=== PATIENT | male | born 1940 | race Caucasian/White ===

== ENCOUNTER 2017-04-09 09:32 | Observation (INO) | payer OTHER, BC ==
[~2017-04-09] VITALS: Ht 177.8 cm; Wt 73.0 kg
[~2017-04-09 09:32] MED LIST: ACTONEL35 MG PO; AMIODARONE HCL200 MG PO; ASPIR 8181 M1 PO; ATORVASTATIN CA20 MG PO; FLOMAX0.4 MG PO; HYDROCODON-ACE1 EAC7 PO; LEVOTHYROXINE100 MCG PO; LISINOPRIL2.5 MG PO; RANITIDINE HCL300 MG PO; RECLAST5 MG/100 M IV; SINEMET 25-1001 EACH PO; SYNTHROID50 MCG PO; VESICARE5 MG PO; VITAMIN D-32000 UNI2 PO; VITAMIN D32000 UNIT PO; WARFARIN SODIU7.5 MG PO; WARFARIN SODIUM5 MG PO
[2017-04-09 10:58] LABS: HEMATOCRIT 37.2 % (38.0-50.0); MCH 31.6 PG (29.0-34.0); MCHC 33.6 G/DL (30.0-36.0); MCV 94.2 FL (86-99); MEAN PLAT.VOLUME 10.3 uM^3 (9.0-12.4); PLATELET COUNT 153 K/uL (156-360); RBC DIS.WIDTH-CV 13.2 % (11.8-14.6); RBC DIS.WIDTH-SD 45.7 % (39-53); RED BLOOD COUNT 3.95 M/uL (4.00-5.50); WHITE BLOOD COUNT 7.1 K/uL (4.1-10.2)
[2017-04-09 11:03] LABS: INTER. NORMALIZED RATIO 2.5
[2017-04-09 11:06] LABS: PTT 40.9 SEC (25-37)
[2017-04-09 11:09] LABS: CHLORIDE 107 mEq/L (99-109); SODIUM 139 mEq/L (136-147)
[2017-04-09 11:11] LABS: GLUCOSE 108 mg/dL (70-99)
[2017-04-09 11:13] LABS: ANION GAP 9 MEQ/L (2-14)
[2017-04-09 11:15] LABS: GFR ESTIMATE (CALCULATED) > 59 mL/min/
[2017-04-09 11:16] LABS: UREA NITROGEN (BUN) 28 mg/dL (9-23)
[2017-04-09 13:57] VITALS: BP 150/74
[2017-04-09] MEDS ORDERED: AMIODARONE HCL200 MG PO (18:20)
[2017-04-09] MEDS ORDERED: WARFARIN SODIU2.5 MG PO (18:20)
[2017-04-09] MEDS ORDERED: VITAMIN D35000 UNI2 PO (18:20)
[2017-04-09] MEDS ORDERED: LEVO-T50 MCG PO (18:21)
[2017-04-09] MEDS ORDERED: ATORVASTATIN CA20 MG PO (18:21)
[2017-04-09] MEDS ORDERED: LISINOPRIL2.5 MG PO (18:22)
[2017-04-09] MEDS ORDERED: RANITIDINE HCL300 MG PO (18:22)
[2017-04-09] MEDS ORDERED: CARBIDOPA/LEVO1 EACH PO (18:23)
[2017-04-09] MEDS ORDERED: ASPIR 8181 M1 PO (18:23)
[2017-04-09] MEDS ORDERED: PAROXETINE HCL10 MG PO (18:25)
[2017-04-09 18:51] VITALS: BP 152/80
[2017-04-10 00:45] LABS: HEMATOCRIT 37.3 % (38.0-50.0); MCV 93.7 FL (86-99)
[2017-04-10 05:38] LABS: HEMATOCRIT 36.9 % (38.0-50.0); MCV 94.1 FL (86-99)
[2017-04-10 06:08] LABS: INTER. NORMALIZED RATIO 1.5
[2017-04-10 06:15] LABS: ANION GAP 11 MEQ/L (2-14); CHLORIDE 107 MEQ/L (99-109); GFR ESTIMATE (CALCULATED) > 59 mL/min/; POTASSIUM 3.7 MEQ/L (3.7-5.4); SAMPLE HEMOLYSIS CHECK 0; SAMPLE ICTERIC CHECK 0; SAMPLE LIPEMIA CHECK 0; SODIUM 142 MEQ/L (136-147); UREA NITROGEN (BUN) 15 mg/dL (9-23)
[2017-04-10 06:17] LABS: PROTHROMBIN TIME 16.3 SEC (10.2-12.9)
[2017-04-10 06:22] LABS: GLUCOSE 80 mg/dL (70-99)
[2017-04-10 07:57] VITALS: BP 158/84
[2017-04-10 12:06] VITALS: BP 157/81
[2017-04-10] MEDS ORDERED: LO-DOSE ASPIRIN81 M2 PO (12:42)
[2017-04-10] MEDS ORDERED: CARBIDOPA/LEVO1 EACH PO ×2 (12:44→12:45)
[2017-04-10] MEDS ORDERED: ACETAMINOPHEN325 M3 PO (12:47)
[2017-04-10 16:11] VITALS: BP 116/68
[2017-04-10 19:56] VITALS: BP 121/73
[2017-04-10 23:12] VITALS: BP 155/80
[2017-04-11 00:50] LABS: HEMATOCRIT 37.6 % (38.0-50.0); MCV 94.7 FL (86-99)
[2017-04-11 03:36] VITALS: BP 139/76
[2017-04-11 07:04] LABS: HEMATOCRIT 42.4 % (38.0-50.0); MCH 31.6 PG (29.0-34.0); MCHC 33.3 G/DL (30.0-36.0); MCV 95.1 FL (86-99); MEAN PLAT.VOLUME 10.9 uM^3 (9.0-12.4); PLATELET COUNT 166 K/uL (156-360); RBC DIS.WIDTH-CV 13.2 % (11.8-14.6); RBC DIS.WIDTH-SD 46.3 % (39-53); RED BLOOD COUNT 4.46 M/uL (4.00-5.50); WHITE BLOOD COUNT 7.7 K/uL (4.1-10.2)
[2017-04-11 08:34] VITALS: BP 175/87
[2017-04-11 11:21] VITALS: BP 140/69
[2017-04-11 15:00] VITALS: BP 131/73
[2017-04-11 17:25] LABS: MCV 94.7 FL (86-99)
[2017-04-11 19:45] VITALS: BP 164/85
[2017-04-11 23:33] VITALS: BP 175/92
[2017-04-12] VITALS (7 sets, daily range): BP systolic 98–185; BP diastolic 60–93
[2017-04-12 00:44] LABS: HEMATOCRIT 36.2 % (38.0-50.0); MCV 93.5 FL (86-99)
[2017-04-12 05:57] LABS: HEMATOCRIT 36.4 % (38.0-50.0); MCV 93.8 FL (86-99)
[2017-04-12 06:01] LABS: INTER. NORMALIZED RATIO 1.2; PROTHROMBIN TIME 12.9 SEC (10.2-12.9)
[2017-04-12 16:06] LABS: HEMATOCRIT 37.6 % (38.0-50.0); MCV 93.3 FL (86-99)
[2017-04-13 01:00] LABS: HEMATOCRIT 36.3 % (38.0-50.0); MCV 92.8 FL (86-99)
[2017-04-13 03:57] VITALS: BP 158/78
[2017-04-13 08:04] VITALS: BP 181/91
[2017-04-13 09:14] LABS: INTER. NORMALIZED RATIO 1.2; PROTHROMBIN TIME 12.8 SEC (10.2-12.9)
[2017-04-13 11:53] VITALS: BP 131/66
== END 2017-04-13 13:33 | disposition home or self-care (01) ==
LOC: EME 09:32 → EDOF 12:01 → 5SOUTH 12:01 → EDOF 12:15 → 5SOUTH 13:17
PROVIDERS: Emergency Medicine; Hospitalist; Nurse Practitioner Adult Health
DX: K55.21 Angiodysplasia of colon with hemorrhage (principal); Z53.09 Procedure and treatment not carried out because of other contraindication; D12.2 Benign neoplasm of ascending colon; D12.3 Benign neoplasm of transverse colon; K57.30 Diverticulosis of large intestine without perforation or abscess without bleeding; I48.91 Unspecified atrial fibrillation; I10 Essential (primary) hypertension; I25.10 Atherosclerotic heart disease of native coronary artery without angina pectoris; Z95.1 Presence of aortocoronary bypass graft; G20 Parkinson's disease; E89.0 Postprocedural hypothyroidism; Z85.46 Personal history of malignant neoplasm of prostate; Z92.3 Personal history of irradiation; Z79.01 Long term (current) use of anticoagulants; Z87.891 Personal history of nicotine dependence; Z79.82 Long term (current) use of aspirin
CPT/HCPCS: 36415; 80048; 84443; 84450; 84460; 85014; 85018; 85027; 85610; 85730; 86900; 86901; 88305; 99281; 99285; C9132; G0378; J3430; J7030; J7050

== ENCOUNTER 2017-05-18 14:30 | Inpatient (IN) | payer OTHER, BC ==
[~2017-05-18] VITALS: Ht 177.8 cm; Wt 73.5 kg
[2017-05-18] VITALS (10 sets, daily range): BP systolic 143–185; BP diastolic 70–92
[~2017-05-18 14:30] MED LIST changes: +ACETAMINOPHEN325 M3 PO; +CARBIDOPA/LEVO1 EACH PO; +LEVO-T50 MCG PO; +LO-DOSE ASPIRIN81 M2 PO; +PAROXETINE HCL10 MG PO; +VITAMIN D35000 UNI2 PO; +WARFARIN SODIU2.5 MG PO
[2017-05-18 15:05] LABS: HEMATOCRIT 38.8 % (38.0-50.0); MCH 31.3 PG (29.0-34.0); MCHC 33.5 G/DL (30.0-36.0); MCV 93.3 FL (86-99); MEAN PLAT.VOLUME 10.9 uM^3 (9.0-12.4); PLATELET COUNT 161 K/uL (156-360); RBC DIS.WIDTH-CV 13.6 % (11.8-14.6); RBC DIS.WIDTH-SD 46.7 % (39-53); RED BLOOD COUNT 4.16 M/uL (4.00-5.50)
[2017-05-18 15:14] LABS: PROTHROMBIN TIME 34.3 SEC (10.2-12.9)
[2017-05-18 15:17] LABS: CHLORIDE 109 mEq/L (99-109); POTASSIUM 4.1 mEq/L (3.7-5.4); SODIUM 141 mEq/L (136-147)
[2017-05-18 15:18] LABS: GLUCOSE 97 mg/dL (70-99)
[2017-05-18 15:20] LABS: ANION GAP 8 MEQ/L (2-14)
[2017-05-18 15:22] LABS: GFR ESTIMATE (CALCULATED) > 59 mL/min/
[2017-05-18 15:23] LABS: UREA NITROGEN (BUN) 18 mg/dL (9-23)
[2017-05-18] MEDS ORDERED: WARFARIN SODIUM5 MG PO (15:44)
[2017-05-18] MEDS ORDERED: ASPIR 8181 M1 PO (15:45)
[2017-05-18] MEDS ORDERED: VITAMIN D35000 UNIT PO (15:45)
[2017-05-18] MEDS ORDERED: CARBIDOPA/LEVO1 EACH PO (15:46)
[2017-05-19 00:40] VITALS: BP 156/76
[2017-05-19 04:58] VITALS: BP 170/104
[2017-05-19 06:15] LABS: HEMATOCRIT 38.8 % (38.0-50.0); MCH 31.4 PG (29.0-34.0); MCHC 33.5 G/DL (30.0-36.0); MCV 93.7 FL (86-99); MEAN PLAT.VOLUME 10.7 uM^3 (9.0-12.4); PLATELET COUNT 152 K/uL (156-360); RBC DIS.WIDTH-CV 13.2 % (11.8-14.6); RBC DIS.WIDTH-SD 45.6 % (39-53); RED BLOOD COUNT 4.14 M/uL (4.00-5.50); WHITE BLOOD COUNT 7.7 K/uL (4.1-10.2)
[2017-05-19 06:21] LABS: INTER. NORMALIZED RATIO 1.6; PROTHROMBIN TIME 17.4 SEC (10.2-12.9)
[2017-05-19 08:14] VITALS: BP 144/69
[2017-05-19 12:03] VITALS: BP 90/50
[2017-05-19 16:00] VITALS: BP 195/90
[2017-05-19 21:14] VITALS: BP 149/79
[2017-05-20 04:23] VITALS: BP 134/69
[2017-05-20 05:45] LABS: HEMATOCRIT 39.5 % (38.0-50.0); MCH 30.7 PG (29.0-34.0); MCHC 32.7 G/DL (30.0-36.0); RBC DIS.WIDTH-SD 46.7 % (39-53); WHITE BLOOD COUNT 7.1 K/uL (4.1-10.2)
[2017-05-20 05:46] LABS: EOSINOPHIL (%) 1.8 % (0-5); EOSINOPHIL COUNT 0.1 K/uL (0-0.3); IMMATURE GRANULOCYTE (%) 0.4 % (0.0-0.7); INSTRUMENT ABS NEUTROPHIL CT 4.7 K/uL; MEAN PLAT.VOLUME 10.5 uM^3 (9.0-12.4); MONOCYTE (%) 16.9 % (3-12); MONOCYTE COUNT 1.2 K/uL (0-0.8); NEUTROPHIL (%) 66.5 % (45-76); NEUTROPHIL COUNT 4.7 K/uL (1.8-6.4); PLATELET COUNT 163 K/uL (156-360); RBC DIS.WIDTH-CV 13.5 % (11.8-14.6)
[2017-05-20 07:18] LABS: INTER. NORMALIZED RATIO 1.2; PROTHROMBIN TIME 13.4 SEC (10.2-12.9)
[2017-05-20 07:21] LABS: PTT 32.9 SEC (25-37)
[2017-05-20 11:44] VITALS: BP 139/75
[2017-05-20 15:27] VITALS: BP 184/88
== END 2017-05-20 18:53 | disposition home or self-care (01) | DRG 919 ==
LOC: EME 14:30 → EDOF 15:45 → ENRESERV 15:47 → 5WEST 17:38 → CANRESERV 05-19 13:14 → ENRESERV 05-19 13:14 → CANRESERV 05-19 13:23 → 5WEST 05-20 18:53
PROVIDERS: Internal Medicine; Specialist
DX: K91.840 Postprocedural hemorrhage of a digestive system organ or structure following a digestive system procedure (principal); Y83.8 Other surgical procedures as the cause of abnormal reaction of the patient, or of later complication, without mention of misadventure at the time of the procedure; R79.1 Abnormal coagulation profile; T45.515A Adverse effect of anticoagulants, initial encounter; K62.7 Radiation proctitis; K55.21 Angiodysplasia of colon with hemorrhage; I48.91 Unspecified atrial fibrillation; I10 Essential (primary) hypertension; G20 Parkinson's disease; E03.9 Hypothyroidism, unspecified; N40.0 Benign prostatic hyperplasia without lower urinary tract symptoms; K21.9 Gastro-esophageal reflux disease without esophagitis; I25.10 Atherosclerotic heart disease of native coronary artery without angina pectoris; Z86.718 Personal history of other venous thrombosis and embolism; Z79.01 Long term (current) use of anticoagulants; Z79.82 Long term (current) use of aspirin; Z95.1 Presence of aortocoronary bypass graft; Z87.891 Personal history of nicotine dependence; Z85.46 Personal history of malignant neoplasm of prostate
CPT/HCPCS: 80048; 85025; 85027; 85610; 85730; 86850; 86900; 86901; 93005; 99281; 99285; C9113; G0378; J0360; J3430; J7030; P9017

== ENCOUNTER → 2017-09-12 | Outpatient (CLI) | payer OTHER, BC ==
[~2017-09-12] VITALS: Ht 170.2 cm; Wt 68.2 kg
[~2017-09-12] MED LIST changes: +VITAMIN D35000 UNIT PO
[2017-09-12 09:05] VITALS: BP 126/64
== END | disposition home or self-care (01) ==
LOC: IVINF 08:52
DX: M81.0 Age-related osteoporosis without current pathological fracture (principal); T50.995A Adverse effect of other drugs, medicaments and biological substances, initial encounter; Z87.19 Personal history of other diseases of the digestive system
CPT/HCPCS: 96365; J3489

== ENCOUNTER 2017-11-17 01:55 | Inpatient (IN) | payer OTHER, BC ==
[2017-11-17] VITALS (9 sets, daily range): BP systolic 52–189; BP diastolic 73–90
[~2017-11-17] VITALS: Ht 177.8 cm; Wt 74.6 kg
[2017-11-17 02:26] LABS: HEMATOCRIT 40.3 % (38.0-50.0); HEMOGLOBIN 13.4 G/DL (12.5-16.6); MCH 31.2 PG (29.0-34.0); MCHC 33.3 G/DL (30.0-36.0); MCV 93.9 FL (86-99); RBC DIS.WIDTH-CV 13.7 % (11.8-14.6); RBC DIS.WIDTH-SD 47.3 % (39-53); RED BLOOD COUNT 4.29 M/uL (4.00-5.50); WHITE BLOOD COUNT 6.5 K/uL (4.1-10.2)
[2017-11-17 02:35] LABS: INTER. NORMALIZED RATIO 2.5
[2017-11-17 02:37] LABS: PTT 45.6 SEC (25-37)
[2017-11-17 02:40] LABS: CHLORIDE 106 mEq/L (99-109); POTASSIUM 4.4 mEq/L (3.7-5.4); SODIUM 140 mEq/L (136-147)
[2017-11-17 02:42] LABS: GLUCOSE 105 mg/dL (70-99)
[2017-11-17 02:45] LABS: CREATININE 1.1 mg/dL (0.6-1.3); GFR ESTIMATE (CALCULATED) > 59 mL/min/ (58.99-99999)
[2017-11-17 02:46] LABS: UREA NITROGEN (BUN) 24 mg/dL (9-23)
[2017-11-17 03:21] LABS: PLAT.SUFFICIENCY ADEQUATE; PLATELET COUNT 178 K/uL (156-360)
[2017-11-17 09:46] LABS: HEMATOCRIT 36.5 % (38.0-50.0); MCV 94.1 FL (86-99)
[2017-11-17 10:00] LABS: INTER. NORMALIZED RATIO 2.1
[2017-11-17 12:33] LABS: INTER. NORMALIZED RATIO 1.8
[2017-11-17 12:36] LABS: PTT 36.6 SEC (25-37)
[2017-11-17 14:31] LABS: HEMATOCRIT 34.6 % (38.0-50.0); HEMOGLOBIN 11.7 G/DL (12.5-16.6); MCV 94.5 FL (86-99)
[2017-11-17 19:57] LABS: HEMATOCRIT 32.6 % (38.0-50.0); HEMOGLOBIN 10.7 G/DL (12.5-16.6); MCV 94.2 FL (86-99)
[2017-11-18 00:24] VITALS: BP 144/77
[2017-11-18 02:10] LABS: HEMATOCRIT 32.8 % (38.0-50.0); HEMOGLOBIN 11.1 G/DL (12.5-16.6); MCV 92.9 FL (86-99)
[2017-11-18 04:22] VITALS: BP 185/91
[2017-11-18 07:12] LABS: CHLORIDE 108 MEQ/L (99-109); CREATININE 0.8 MG/DL (0.6-1.3); GFR ESTIMATE (CALCULATED) > 59 mL/min/ (58.99-99999); GLUCOSE 84 mg/dL (70-99); POTASSIUM 4.4 MEQ/L (3.7-5.4); SODIUM 140 MEQ/L (136-147); UREA NITROGEN (BUN) 14 mg/dL (9-23)
[2017-11-18 08:00] VITALS: BP 164/85
[2017-11-18 08:18] LABS: HEMATOCRIT 34.8 % (38.0-50.0); HEMOGLOBIN 11.3 G/DL (12.5-16.6); MCV 94.1 FL (86-99)
[2017-11-18 11:48] VITALS: BP 124/79
[2017-11-18 16:33] VITALS: BP 164/73
[2017-11-18 20:13] VITALS: BP 124/65
[2017-11-19 00:36] VITALS: BP 120/62
[2017-11-19 03:23] VITALS: BP 170/82
[2017-11-19 06:57] LABS: BASOPHIL (%) 0.2 % (0-1); EOSINOPHIL (%) 1.5 % (0-5); EOSINOPHIL COUNT 0.1 K/uL (0-0.3); HEMATOCRIT 37.4 % (38.0-50.0); HEMOGLOBIN 12.3 G/DL (12.5-16.6); IMMATURE GRANULOCYTE (%) 0.3 % (0.0-0.7); LYMPHOCYTE (%) 8.5 % (15-42); LYMPHOCYTE COUNT 0.8 K/uL (1.0-2.8); MCHC 32.9 G/DL (30.0-36.0); MCV 94.2 FL (86-99); MONOCYTE (%) 15.7 % (3-12); MONOCYTE COUNT 1.5 K/uL (0-0.8); NEUTROPHIL (%) 73.8 % (45-76); NEUTROPHIL COUNT 6.9 K/uL (1.8-6.4); PLATELET COUNT 169 K/uL (156-360); RBC DIS.WIDTH-CV 13.3 % (11.8-14.6); RBC DIS.WIDTH-SD 46.2 % (39-53); RED BLOOD COUNT 3.97 M/uL (4.00-5.50); WHITE BLOOD COUNT 9.3 K/uL (4.1-10.2)
[2017-11-19 07:21] LABS: CHLORIDE 105 MEQ/L (99-109); CREATININE 0.9 MG/DL (0.6-1.3); GFR ESTIMATE (CALCULATED) > 59 mL/min/ (58.99-99999); GLUCOSE 94 mg/dL (70-99); POTASSIUM 4.1 MEQ/L (3.7-5.4); SODIUM 140 MEQ/L (136-147); UREA NITROGEN (BUN) 19 mg/dL (9-23)
[2017-11-19 08:06] VITALS: BP 141/76
[2017-11-19] MEDS ORDERED: LISINOPRIL5 MG PO (09:04)
== END 2017-11-19 14:00 | disposition home health service (06) | DRG 378 ==
LOC: EME 01:55 → EDOF 05:01 → ENRESERV 05:03 → 2EASTP 08:14
PROVIDERS: Hospitalist
PROC: 30233K1 Transfusion of Nonautologous Frozen Plasma into Peripheral Vein, Percutaneous Approach (ICD-10-PCS; principal; 2017-11-17)
DX: K92.2 Gastrointestinal hemorrhage, unspecified (principal); K62.7 Radiation proctitis; Y84.2 Radiological procedure and radiotherapy as the cause of abnormal reaction of the patient, or of later complication, without mention of misadventure at the time of the procedure; G20 Parkinson's disease; I48.0 Paroxysmal atrial fibrillation; I10 Essential (primary) hypertension; Z86.711 Personal history of pulmonary embolism; Z86.718 Personal history of other venous thrombosis and embolism; Z92.21 Personal history of antineoplastic chemotherapy; Z92.3 Personal history of irradiation; Z79.01 Long term (current) use of anticoagulants; I25.10 Atherosclerotic heart disease of native coronary artery without angina pectoris; E03.9 Hypothyroidism, unspecified; I25.2 Old myocardial infarction; Z95.1 Presence of aortocoronary bypass graft; Z85.46 Personal history of malignant neoplasm of prostate; I34.0 Nonrheumatic mitral (valve) insufficiency; E21.3 Hyperparathyroidism, unspecified; T45.515A Adverse effect of anticoagulants, initial encounter; D68.32 Hemorrhagic disorder due to extrinsic circulating anticoagulants; Z87.891 Personal history of nicotine dependence
CPT/HCPCS: 80048; 82948; 85014; 85018; 85025; 85027; 85610; 85730; 86850; 86900; 86901; 86920; 93005; 99281; 99285; C9113; J7030; P9017